=== PATIENT | female | born 1980 | race Caucasian/White ===

== ENCOUNTER 2017-01-16 13:39 | Emergency (ER) | payer OTHER ==
[2017-01-16 13:47] VITALS: BP 99/73; PULSE 87; TEMP 98.7; BMI 33.0
--- NOTE | 2017-01-16 13:52 | PDOC ---
History of Present Illness - General Chief Complaint: Pain Stated Complaint: NECK PAIN/ BACK PAIN Time Seen by Provider: 01/16/17 13:50 History Source: Patient, Spouse - History of Present Illness Occurred: reports: yesterday Severity: reports: severe Pain Location: reports: neck Past History - Past Medical History Allergies/Adverse Reactions: Allergies Allergy/AdvReac Type Severity Reaction Status Date / Time tramadol Allergy Verified 01/16/17 13:41 Home Medications: Ambulatory Orders Cyclobenzaprine HCl [Flexeril 10 mg] 10 mg PO TID PRN #9 tablet 01/16/17 Ibuprofen [Motrin -] 800 mg PO Q6H #30 tablet 01/16/17 Lidocaine 5% Patch [Lidoderm Patch -] 1 patch TP DAILY #7 patch 01/16/17 Other medical history: NECK AND BACK DISC - Immunization History Immunization Up to Date: Yes - Psycho/Social/Smoking Cessation Hx Anxiety: No Suicidal Ideation: No Smoking History: Never smoked Have you smoked in the past 12 months: No Information on smoking cessation initiated: No Hx Alcohol Use: No Drug/Substance Use Hx: No Substance Use Type: None Review of Systems - Review of Systems Constitutional: No: Chills, Fever Musculoskeletal: Yes: Back Pain, Neck Pain Neurological: No: Headache, Numbness, Tingling, Weakness, Dizziness *Physical Exam - Vital Signs Last Vital Signs Temp Pulse Resp BP Pulse Ox 98.7 F 87 18 99/73 100 01/16/17 13:41 01/16/17 13:41 01/16/17 13:41 01/16/17 13:41 01/16/17 13:41 - Physical Exam General Appearance: Yes: Appropriately Dressed, Mild Distress HEENT: positive: Normal Voice Neck: positive: Supple, Tender lateral (R side and over R shoulderblabe, LROM to neck 2/2 pain, no midline ttp, UE strength intact b/l, NVI). 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 Unable to describe, but constant and worse with movement of her neck. No upper extremity weakness, sensory changes, SHAH, dizziness, n/v/f/c. Took Motrin with minimal relief. See exam Acute on chronic neck pain Known h/o DJD to spine No recent trauma No s/o radiculopathy or other red flags on exam at this time -pain meds in ED and reassess -anticipate dc w/ pain control and neuro f/u 01/16/17 14:13 01/16/17 14:14 01/16/17 14:17 S/p meds, pt requesting to be discharge. Rxs sent to pharmacy. Will f/u with neuro *DC/Admit/Observation/Transfer Diagnosis at time of Disposition: Neck pain - Discharge Dispostion Disposition: HOME Condition at time of disposition: Improved - Prescriptions Prescriptions: Cyclobenzaprine HCl [Flexeril 10 mg] 10 mg PO TID PRN #9 tablet PRN Reason: Pain Lidocaine 5% Patch [Lidoderm Patch -] 1 patch TP DAILY #7 patch Ibuprofen [Motrin -] 800 mg PO Q6H #30 tablet - Patient Instructions Printed Discharge Instructions: DI for Neck Pain Additional Instructions: Take medications as directed and follow up with Dr Mcdonnell
[2017-01-16] MEDS ORDERED: KETOROLAC TROMETHAMINE 60 MG/2 ML VIAL IM ONE (13:58)
[2017-01-16] MEDS ORDERED: diazePAM 5 MG TABLET PO ONE (13:58)
[2017-01-16] MEDS ORDERED: diazePAM 5 MG TABLET ONE (14:01)
[2017-01-16] MEDS ORDERED: KETOROLAC TROMETHAMINE 60 MG/2 ML VIAL ONE (14:01)
== END 2017-01-16 14:15 | disposition home or self-care (01) ==
LOC: JERFT 13:39
PROC: 3E0233Z Introduction of Anti-inflammatory into Muscle, Percutaneous Approach (ICD-10-PCS; principal; 2017-01-16)
DX: M54.5 Low back pain (principal); M51.36 Other intervertebral disc degeneration, lumbar region
CPT/HCPCS: 96372; 99281-25

== ENCOUNTER 2017-06-01 13:51 | Emergency (ER) | payer OTHER ==
[2017-06-01 14:00] VITALS: BP 105/74; PULSE 68; TEMP 98.1; BMI 26.6
[2017-06-01 14:41] LABS: URINE APPEARANCE SLCLOUDY; URINE BILIRUBIN NEGATIVE (NEGATIVE); URINE BLOOD 2+ (NEGATIVE); URINE COLOR LTYELLOW; URINE GLUCOSE (UA) NEGATIVE (NEGATIVE); URINE KETONE NEGATIVE (NEGATIVE); URINE NITRITE NEGATIVE (NEGATIVE); URINE PROTEIN NEGATIVE (NEGATIVE); URINE UROBILINOGEN NEGATIVE mg/dL (0.2-1.0)
[2017-06-01 14:52] LABS: URINE RBC 26 /hpf (0-3); URINE WBC 6 /hpf (3-5)
[2017-06-01] MEDS ORDERED: KETOROLAC TROMETHAMINE 60 MG/2 ML VIAL IVPB ONE (15:00)
[2017-06-01] MEDS ORDERED: SODIUM CHLORIDE 0.9% 1000 ML INFUS.BAG IV ONE (15:00)
--- NOTE | 2017-06-01 15:01 | PDOC ---
History of Present Illness - General Chief Complaint: Back Pain Stated Complaint: LT SIDE PAIN Time Seen by Provider: 06/01/17 14:01 History Source: Patient Exam Limitations: No Limitations - History of Present Illness Initial Comments: 06/01/17 15:01 Patient is a 37-year-old female, no significant medical history currently on no medication presents with pain to left lateral side, right under ribs. Not reproducible. Constant and getting worse. Denies any hematuria. No pain on urination. Denies any trauma to area. Patient reports pain on inspiration as well as pain at rest. Past Medical History: Denies. Allergies: No known allergies Medications: None Family History: Non-contributory Social History: Denies smoking, alcohol use, or IVDU Review of Systems GENERAL/CONSTITUTIONAL: No fever or chills. No weakness. No weight change. HEAD, EYES, EARS, NOSE AND THROAT: No change in vision. No ear pain or discharge. No sore throat. CARDIOVASCULAR: No chest pain or shortness of breath. RESPIRATORY: No cough, wheezing, or hemoptysis. GASTROINTESTINAL: No nausea, vomiting, diarrhea or constipation. No rectal bleeding. GENITOURINARY: No dysuria, frequency, or change in urination. MUSCULOSKELETAL: No joint or muscle swelling or pain. No neck pain. Left flank pain SKIN AND BREASTS: No rash or easy bruising. NEUROLOGIC: No headache, vertigo, loss of consciousness, or loss of sensation. PSYCHIATRIC: No depression or anxiety. ENDOCRINE: No increased thirst. No abnormal weight change. HEMATOLOGIC/LYMPHATIC: No anemia, easy bleeding, or history of blood clots. ALLERGIC/IMMUNOLOGIC: No hives or skin allergy. No latex allergy. Physical Exam: GENERAL: The patient is awake, alert, and fully oriented, in no acute distress. HEAD: Normal with no signs of trauma. EYES: Pupils equal, round and reactive to light, extraocular movements intact, sclera anicteric, conjunctiva clear. ENT: Ears normal, nares patent, oropharynx clear without exudates. Moist mucous membranes. No uvula deviation NECK: Normal range of motion, supple without lymphadenopathy, JVD, or masses. LUNGS: Breath sounds equal, clear to auscultation bilaterally. No wheezes, and no crackles. HEART: Regular rate and rhythm, normal S1 and S2 without murmur, rub or gallop. ABDOMEN: Soft, nontender, normoactive bowel sounds. No guarding, no rebound. No masses. No bruising or abrasions RECTAL : Guaiac negative, normal rectal tone. MUSCULOSKELETAL: [Normal range of motion, no edema. No clubbing or cyanosis. No cords, erythema, or tenderness. Pain to left side with fist palpation. Left flank pain. NEUROLOGICAL: Cranial nerves II through XII grossly intact. Normal speech, normal gait. SKIN: Warm, Dry, normal turgor, no rashes or lesions noted. Past History - Past Medical History Allergies/Adverse Reactions: Allergies Allergy/AdvReac Type Severity Reaction Status Date / Time tramadol Allergy Verified 06/01/17 14:00 Home Medications: Ambulatory Orders Cyclobenzaprine HCl [Flexeril 10 mg] 10 mg PO BID PRN #20 tablet 06/01/17 Ibuprofen [Motrin -] 800 mg PO Q6H #30 tablet 06/01/17 Other medical history: Patient Denies - Immunization History Immunization Up to Date: Yes - Suicide/Smoking/Psychosocial Hx Smoking History: Never smoked Have you smoked in the past 12 months: No Information on smoking cessation initiated: No Hx Alcohol Use: No Drug/Substance Use Hx: No Substance Use Type: None *Physical Exam - Vital Signs Last Vital Signs Temp Pulse Resp BP Pulse Ox 98.1 F 68 16 105/74 98 06/01/17 13:57 06/01/17 13:57 06/01/17 13:57 06/01/17 13:57 06/01/17 13:57 ED Treatment Course - LABORATORY CBC & Chemistry Diagram: 06/01/17 15:01 06/01/17 15:01 - ADDITIONAL ORDERS Additional order review: Laboratory Results 06/01/17 06/01/17 14:32 14:32 Urine Color Ltyellow Urine Appearance Slcloudy Urine pH 7.0 Urine Protein Negative Urine Glucose (UA) Negative Urine Ketones Negative Urine Blood 2+ H Urine Nitrite Negative Urine Bilirubin Negative Urine Urobilinogen Negative Urine RBC 26 Urine WBC 6 Ur Epithelial Cells Rare Urine HCG, Qual Negative - RADIOLOGY Radiology Studies Ordered: Category Date Time Status CHEST PA & LAT [RAD] Stat Radiology 06/01/17 14:23 Ordered Medical Decision Making - Medical Decision Making 06/01/17 15:03 A/P: Patient here for left lateral flank pain. Denies any trauma. Pain at rest, nonreproducible. Plan: Rule out back pain versus kidney stone. Plan: Urinalysis, urine culture, urine Chest PA lateral Laboratory Results - last 24 hr 06/01/17 06/01/17 14:32 14:32 Urine Color Ltyellow Urine Appearance Slcloudy Urine pH 7.0 Urine Protein Negative Urine Glucose (UA) Negative Urine Ketones Negative Urine Blood 2+ H Urine Nitrite Negative Urine Bilirubin Negative Urine Urobilinogen Negative Urine RBC 26 Urine WBC 6 Ur Epithelial Cells Rare Urine HCG, Qual Negative +2 blood in urine with RBCs of 26 will send for spiral CT rule out kidney stones CMP, CBC Saline lock Normal saline bolus, 'TOradol 30 mg IVPB. Laboratory Results - last 24 hr 06/01/17 06/01/17 06/01/17 14:32 14:32 15:01 WBC 4.1 RBC 4.25 Hgb 13.0 Hct 38.9 MCV 91.5 MCH 30.5 MCHC 33.4 RDW 13.6 Plt Count 274 MPV 8.9 Neutrophils % 46.2 Lymphocytes % 40.1 H Monocytes % 6.3 Eosinophils % 6.4 H Basophils % 1.0 Sodium Potassium Chloride Carbon Dioxide Anion Gap BUN Creatinine Creat Clearance w eGFR Random Glucose Calcium Total Bilirubin AST ALT Alkaline Phosphatase Total Protein Albumin Urine Color Ltyellow Urine Appearance Slcloudy Urine pH 7.0 Urine Protein Negative Urine Glucose (UA) Negative Urine Ketones Negative Urine Blood 2+ H Urine Nitrite Negative Urine Bilirubin Negative Urine Urobilinogen Negative Urine RBC 26 Urine WBC 6 Ur Epithelial Cells Rare Urine HCG, Qual Negative 06/01/17 15:01 WBC RBC Hgb Hct MCV MCH MCHC RDW Plt Count MPV Neutrophils % Lymphocytes % Monocytes % Eosinophils % Basophils % Sodium 141 Potassium 4.6 Chloride 106 Carbon Dioxide 28 Anion Gap 7 L BUN 10 Creatinine 0.6 Creat Clearance w eGFR > 60 Random Glucose 84 Calcium 9.1 Total Bilirubin 0.4 AST 15 ALT 26 Alkaline Phosphatase 66 Total Protein 7.3 Albumin 3.6 Urine Color Urine Appearance Urine pH Urine Protein Urine Glucose (UA) Urine Ketones Urine Blood Urine Nitrite Urine Bilirubin Urine Urobilinogen Urine RBC Urine WBC Ur Epithelial Cells Urine HCG, Qual 06/01/17 16:30 CBC reveals no anemia, leukocytosis, bandemia, lymphocytosis, or neutrophilia. Platelets are within normal values at this time. CMP reveals no electrolyte imbalance, there is no transaminitis, renal function is normal, there is no hyperbilirubinemia. Urinalysis reveals no urinary tract infection. Chest x-rays negative for acute cardiopulmonary disease. CT scan demonstrated several punctate calcifications within the left upper collecting system consistent of nonobstructive calculi . No acute pathology within the abdomen or pelvis. We'll DC patient home, Motrin and Flexeril, follow -up with PMD for back pain. I discussed the physical exam findings, ancillary test results and final diagnoses with the patient. I answered all of the patient's questions. The patient was satisfied with the care received and felt comfortable with the discharge plan and treatment plan. The patient will call to arrange follow-up and will return to the Emergency Department with any new, persistant or worsening symptoms. 06/01/17 16:34 *DC/Admit/Observation/Transfer Diagnosis at time of Disposition: Back pain Qualifiers: Back pain location: low back pain Chronicity: acute Back pain laterality: left Sciatica presence: without sciatica Qualified Code(s): M54.5 - Low back pain; M54.5 - Low back pain - Discharge Dispostion Disposition: HOME Condition at time of disposition: Good Admit: No - Prescriptions Prescriptions: Cyclobenzaprine HCl [Flexeril 10 mg] 10 mg PO BID PRN #20 tablet PRN Reason: Pain Ibuprofen [Motrin -] 800 mg PO Q6H #30 tablet - Referrals Referrals: Erik Radford MD [Primary Care Provider] - - Patient Instructions Printed Discharge Instructions: DI for Low Back Pain Additional Instructions: 1. Please return to the emergency department with any numbness, tingling, weakness, numbness or tingling to groin or legs, or loss of bowel or bladder function. 2. Use pain medication as ordered. 3. Please is to followup in the office of for evaluation within a week if no improvement. 4. Ice or heat 5. Refrain from lifting anything above 10 pounds, until pain resolved. - Post Discharge Activity
[2017-06-01 15:30] LABS: EOSINOPHIL 6.4 % (0-4.5); MCH 30.5 pg (25.7-33.7); MCHC 33.4 g/dl (32.0-36.0); MEAN CELL VOLUME 91.5 fl (80-96); MEAN PLT VOLUME 8.9 fl (7.5-11.1); NEUTROPHILS 46.2 % (42.8-82.8); PLATELET COUNT 274 K/MM3 (134-434); RDW 13.6 % (11.6-15.6); WHITE BLOOD COUNT 4.1 K/mm3 (4.0-10.0)
[2017-06-01] MEDS ORDERED: KETOROLAC TROMETHAMINE 30 MG/1 ML VIAL ONE (15:32)
[2017-06-01 15:50] LABS: ALBUMIN 3.6 g/dl (3.4-5.0); ANION GAP 7 (8-16); CALCIUM 9.1 mg/dL (8.5-10.1); CO2 28 mmol/L (21-32); CREATININE 0.6 mg/dL (0.55-1.02); GLUCOSE,RANDOM 84 mg/dL (74-106); SGOT/AST 15 U/L (15-37); SGPT/ALT 26 U/L (12-78)
[2017-06-01 15:52] LABS: ALK PHOS 66 U/L (45-117); BILIRUBIN,TOTAL 0.4 mg/dL (0.2-1.0); TOT PROT 7.3 g/dl (6.4-8.2)
[2017-06-01 20:36] LABS: URINE LEUK ESTERASE Negative (NEGATIVE)
== END 2017-06-01 17:01 | disposition home or self-care (01) ==
LOC: JERFT 13:51
PROC: 3E0337Z Introduction of Electrolytic and Water Balance Substance into Peripheral Vein, Percutaneous Approach (ICD-10-PCS; principal; 2017-06-01)
PROC: 3E0333Z Introduction of Anti-inflammatory into Peripheral Vein, Percutaneous Approach (ICD-10-PCS; 2017-06-01)
DX: M54.5 Low back pain (principal)
CPT/HCPCS: 36415; 71020-TC; 74176; 80053; 81003; 81015; 84703; 85025; 87086; 99282-25

== ENCOUNTER 2018-02-04 14:33 | Emergency (ER) | payer OTHER ==
[2018-02-04 14:40] VITALS: BMI 26.9
[2018-02-04] MEDS ORDERED: KETOROLAC TROMETHAMINE 60 MG/2 ML VIAL IM ONE (14:52)
--- NOTE | 2018-02-04 14:52 | PDOC ---
History of Present Illness - General Chief Complaint: Back Pain Stated Complaint: LOWER BACK PAIN Time Seen by Provider: 02/04/18 14:42 History Source: Patient, Spouse - History of Present Illness Occurred: reports: this morning Pain Location: reports: back Past History - Past Medical History Allergies/Adverse Reactions: Allergies Allergy/AdvReac Type Severity Reaction Status Date / Time tramadol Allergy Verified 02/04/18 14:40 Home Medications: Ambulatory Orders Oxycodone HCl/Acetaminophen [Percocet 5-325 mg Tablet] 1 tab PO TID PRN #12 tablet MDD 3 tabs 02/04/18 COPD: No - Immunization History Immunization Up to Date: Yes - Suicide/Smoking/Psychosocial Hx Smoking History: Never smoked Have you smoked in the past 12 months: No Hx Alcohol Use: No Drug/Substance Use Hx: No Substance Use Type: None Review of Systems - Review of Systems Constitutional: No: Fever ABD/GI: No: Nausea, Vomiting, Abdominal cramping : No: Dysuria, Flank Pain, Hematuria Musculoskeletal: Yes: Back Pain Neurological: No: Numbness, Tingling, Weakness *Physical Exam - Vital Signs Last Vital Signs Temp Pulse Resp BP Pulse Ox 97.5 F L 68 18 102/68 99 02/04/18 14:36 02/04/18 14:36 02/04/18 14:36 02/04/18 14:36 02/04/18 14:36 - Physical Exam Comments: 02/04/18 14:57 appears very uncomfortable General Appearance: Yes: Appropriately Dressed HEENT: positive: Normal Voice Neck: positive: Supple Respiratory/Chest: negative: Respiratory Distress Gastrointestinal/Abdominal: positive: Soft. negative: Tender Musculoskeletal: positive: Vertebral Tenderness (to lower back). negative: CVA Tenderness Extremity: positive: Normal Inspection Integumentary: positive: Dry, Warm Neurologic: positive: Fully Oriented, Alert, Normal Mood/Affect, Motor Strength 5/5 Medical Decision Making - Medical Decision Making 02/04/18 14:49 38 yo F, h/o chronic neck and lower back pain, multilevel lumbar DJD on MRI in 2016, usually takes OTC meds for pain but currently takes rx meds, though does not remember name, here with worsening of pain that started acutely while bending this am. Pain sharp, localized to lower back, constant and worse w/ movement/weight bearing, similar to pain in past. No LE weakness, sensory changes, saddle anesthesia or B/B incontinence. Currently f/u with neurology See exam Acute on chronic LBP Multilevel DJD to LS spine on MRI 2015 No e/o cauda equina on exam On rx pain meds at home w/ no relief F/u with neuro -pain control necessary in ED/reassess 02/04/18 15:47 On reassessment, pt continues c/o severe LBP and unable to get up from stretcher. Pt reports allergy to tramadol (rxn-itching) and has never taken any other narcotics. Will transfer over to [facility] for further attempts at pain control. Unlikely imaging as no e/o cauda equina. Pt signed out to Dr Altman 02/04/18 17:08 *DC/Admit/Observation/Transfer Diagnosis at time of Disposition: Chronic back pain Qualifiers: Back pain location: low back pain Back pain laterality: unspecified Sciatica presence: without sciatica Qualified Code(s): M54.5 - Low back pain - Discharge Dispostion Condition at time of disposition: Stable - Prescriptions Prescriptions: Oxycodone HCl/Acetaminophen [Percocet 5-325 mg Tablet] 1 tab PO TID PRN #12 tablet MDD 3 tabs PRN Reason: Pain - Referrals Referrals: Erik Radford MD [Primary Care Provider] - - Patient Instructions Additional Instructions: You were seen in the ER for an acute flare-up of your chronic back pain. We gave you an injection of Toradol, some Flexeril, a Percocet, and some Valium, which helped with your pain. We are giving you referral information for one of our neurosurgeons; please follow up with them or with your own neurosurgeon. Please also follow up with your regular PCP doctor in 1-3 days, and discuss changing your pain management regimen so that you can get on top of your chronic back pain before getting to the point where you need to come to the ER. Call their clinic as soon as possible, tell them you were seen in the ER for back pain, and tell them you need an appointment. If you have any new or worsening symptoms please come back to the ER at any time (24 hours a day), especially for fever, new numbness, new tingling new weakness, new urinary or bowel incontinence or retention, or other new symptoms. If you are having severe or life threatening symptoms, or symptoms that make it unsafe to drive or have someone drive you, please call 911. - Post Discharge Activity
[2018-02-04] MEDS ORDERED: CYCLOBENZAPRINE HCL 10 MG TABLET (FP) PO ONE (14:55)
[2018-02-04] MEDS ORDERED: KETOROLAC TROMETHAMINE 60 MG/2 ML VIAL ONE (14:58)
[2018-02-04] MEDS ORDERED: CYCLOBENZAPRINE HCL 10 MG TABLET (FP) ONE (14:58)
[2018-02-04] MEDS ORDERED: diazePAM 2 MG TABLET PO ONE (16:26)
[2018-02-04] MEDS ORDERED: diazePAM 2 MG TABLET ONE (16:45)
--- NOTE | 2018-02-04 17:04 | PDOC ---
*Physical Exam - Vital Signs Last Vital Signs Temp Pulse Resp BP Pulse Ox 97.5 F L 68 18 102/68 99 02/04/18 14:36 02/04/18 14:36 02/04/18 14:36 02/04/18 14:36 02/04/18 14:36 <Konstantin Gould - Last Filed: 02/04/18 17:11> - Vital Signs Last Vital Signs Temp Pulse Resp BP Pulse Ox 97.5 F L 68 18 102/68 99 02/04/18 14:36 02/04/18 14:36 02/04/18 14:36 02/04/18 14:36 02/04/18 14:36 02/04/18 16:50 Care endorsed to me by MISAEL Pappas from [place]. This is a 38 YOF with h/o chronic back and neck pain 2/2 multilevel lumbar DJD (had MRI in 2016, followed by PCP and neurology for this and has had prescriptions for muscle relaxers and pain relievers in the past) who p/w acute worsening of her same chronic lower back pain after bending over yesterday. She had the onset of pain immediately after bending over, and it feels exactly the same as her normal chronic back pain. She has not gotten relief with OTC pain medications. She denies any e/o cauda equina syndrome (see Qian Pappas's note). <Gloria Grullon - Last Filed: 02/04/18 17:12> ED Treatment Course - Medications Given in the ED: ED Medications Discontinued Medications Generic Name Dose Route Start Last Admin Trade Name Dona PRN Reason Stop Dose Admin Cyclobenzaprine HCl 10 mg 02/04/18 14:55 02/04/18 15:03 Flexeril - PO 02/04/18 14:56 10 mg ONCE ONE Administration Diazepam 2 mg 02/04/18 16:26 02/04/18 16:51 Valium - PO 02/04/18 16:27 2 mg ONCE ONE Administration Ketorolac Tromethamine 60 mg 02/04/18 14:52 02/04/18 15:01 Toradol Injection - IM 02/04/18 14:53 60 mg ONCE ONE Administration Oxycodone/Acetaminophen 1 combo 02/04/18 16:26 02/04/18 16:51 Percocet 5/325 - PO 02/04/18 16:27 1 combo ONCE ONE Administration <Konstantin Gould - Last Filed: 02/04/18 17:11> - Medications Given in the ED: ED Medications Discontinued Medications Generic Name Dose Route Start Last Admin Trade Name Freq PRN Reason Stop Dose Admin Cyclobenzaprine HCl 10 mg 02/04/18 14:55 02/04/18 15:03 Flexeril - PO 02/04/18 14:56 10 mg ONCE ONE Administration Ketorolac Tromethamine 60 mg 02/04/18 14:52 02/04/18 15:01 Toradol Injection - IM 02/04/18 14:53 60 mg ONCE ONE Administration <Gloria Grullon - Last Filed: 02/04/18 17:12> Medical Decision Making - Medical Decision Making The Pt has gotten significant relief of symptoms with ED medications (first Toradol and Flexeril, later Percocet and Valium). They are appropriate for discharge with close outpatient follow up. E-Rx is sent for Percocet to last the rest of the weekend so the patient can see her outpatient provider. The Pt is comfortable with this plan and will follow up with their PCP in 1-3 days. They are counseled on importance of proactive pain management and neurosurgery follow up. Specific return precautions are discussed and they will come back to the ER if necessary. <Gloria Grullon - Last Filed: 02/04/18 17:12> *DC/Admit/Observation/Transfer <Konstantin Gould - Last Filed: 02/04/18 17:11> - Discharge Dispostion Decision to Admit order: No <Gloria Grullon - Last Filed: 02/04/18 17:12> Diagnosis at time of Disposition: Chronic back pain Qualifiers: Back pain location: low back pain Back pain laterality: unspecified Sciatica presence: without sciatica Qualified Code(s): M54.5 - Low back pain - Discharge Dispostion Disposition: HOME Condition at time of disposition: Stable - Prescriptions Prescriptions: Oxycodone HCl/Acetaminophen [Percocet 5-325 mg Tablet] 1 tab PO TID PRN #12 tablet MDD 3 tabs PRN Reason: Pain - Referrals Referrals: Erik Radford MD [Primary Care Provider] - Dayton Denise MD [Staff Physician] - - Patient Instructions Additional Instructions: You were seen in the ER for an acute flare-up of your chronic back pain. We gave you an injection of Toradol, some Flexeril, a Percocet, and some Valium, which helped with your pain. We are giving you referral information for one of our neurosurgeons; please follow up with them or with your own neurosurgeon. Please also follow up with your regular PCP doctor in 1-3 days, and discuss changing your pain management regimen so that you can get on top of your chronic back pain before getting to the point where you need to come to the ER. Call their clinic as soon as possible, tell them you were seen in the ER for back pain, and tell them you need an appointment. If you have any new or worsening symptoms please come back to the ER at any time (24 hours a day), especially for fever, new numbness, new tingling new weakness, new urinary or bowel incontinence or retention, or other new symptoms. If you are having severe or life threatening symptoms, or symptoms that make it unsafe to drive or have someone drive you, please call 911. - Post Discharge Activity
--- NOTE | 2018-02-04 17:10 | PDOC ---
Attending Attestation - Resident Resident Name: Gloria Grullon - ED Attending Attestation I have performed the following: I have examined & evaluated the patient, The case was reviewed & discussed with the resident, I agree w/resident's findings & plan, Exceptions are as noted - HPI HPI: 02/04/18 17:04 38 F with h/o chronic back pain presenting with acute worsening of her pain. Pt states she was bending over when she suddenly felt sharp pain in her lower back. Radiates down both legs. Pt denies falling or any trauma to the area. Denies weakness/numbness in her legs but states that she has very significant pain with standing and ambulation. Pt denies incontinence, denies saddle anesthesia. Denies F/C. - Physicial Exam PE: 02/04/18 17:09 "GENERAL: Awake, alert, and fully oriented, in no acute distress. HEAD: No signs of trauma EYES: PERRLA, EOMI, sclera anicteric, conjunctiva clear ENT: Auricles normal inspection, hearing grossly normal, nares patent, oropharynx clear without exudates. Moist mucosa NECK: Nontender, no stepoffs, Normal ROM, supple, no lymphadenopathy, JVD, or masses LUNGS: Breath sounds equal, clear to auscultation bilaterally. No wheezes, and no crackles HEART: Regular rate and rhythm, normal S1 and S2, no murmurs, rubs or gallops ABDOMEN: Soft, nontender, normoactive bowel sounds. No guarding, no rebound. No masses EXTREMITIES: Normal range of motion, no edema. No clubbing or cyanosis. No cords, erythema, or tenderness BACK: + mild paraspinal lumbar tenderness, no stepoffs NEUROLOGICAL: Cranial nerves II through XII intact. 5/5 strength and sensation in all extremities, Normal speech, normal gait, normal cerebellar function SKIN: Warm, Dry, normal turgor, no rashes or lesions noted. " - Medical Decision Making 02/04/18 17:10 38 F with lower back pain, acute on chronic. Pt with no neuro deficits. Is ambulatory in ED. Pt received IM toradol, flexeril, percocet, and valium prior to my evaluation. Now with significant improvement in pain. Pt with no red flags for cauda equina/cord compression/epidural abscess. - F/u neurology Pt is well appearing, with normal vitals. Clinically stable for DC at this time. I discussed the physical exam findings, ancillary test results and final diagnoses with the patient. I answered all of the patient's questions. The patient was satisfied with the care received and felt comfortable with the discharge plan and treatment plan. The patient agrees to follow up with the primary care physician within 24-72 hours.
[2018-02-04 17:27] VITALS: BP 125/59; PULSE 65; TEMP 97.9
== END 2018-02-04 17:26 | disposition home or self-care (01) ==
LOC: JERFT 14:33 → JER 14:33
PROC: 3E0233Z Introduction of Anti-inflammatory into Muscle, Percutaneous Approach (ICD-10-PCS; principal; 2018-02-04)
DX: M54.5 Low back pain (principal); M47.896 Other spondylosis, lumbar region
CPT/HCPCS: 96372; 99283-25

== ENCOUNTER 2018-04-28 13:24 | Emergency (ER) | payer OTHER ==
[2018-04-28 13:40] VITALS: BP 112/68; PULSE 65; TEMP 98.2; BMI 28.7
--- NOTE | 2018-04-28 14:02 | PDOC ---
History of Present Illness - General Chief Complaint: Pain, Acute Stated Complaint: RIGHT KNEE PAIN Time Seen by Provider: 04/28/18 13:46 History Source: Patient Exam Limitations: No Limitations - History of Present Illness Initial Comments: 04/28/18 14:01 38 yr female with 2 weeks right knee pain denies injury, states pain worse with walking up and down steps. Past History - Past Medical History Allergies/Adverse Reactions: Allergies Allergy/AdvReac Type Severity Reaction Status Date / Time tramadol Allergy Verified 04/28/18 13:38 Home Medications: Ambulatory Orders Ibuprofen 600 mg PO ASDIR 04/28/18 CVA: No COPD: No - Immunization History Immunization Up to Date: Yes - Suicide/Smoking/Psychosocial Hx Smoking History: Never smoked Have you smoked in the past 12 months: No Information on smoking cessation initiated: No Hx Alcohol Use: No Drug/Substance Use Hx: No Substance Use Type: None *Physical Exam - Vital Signs Last Vital Signs Temp Pulse Resp BP Pulse Ox 98.2 F 65 18 112/68 99 04/28/18 13:38 04/28/18 13:38 04/28/18 13:38 04/28/18 13:38 04/28/18 13:38 - Physical Exam General Appearance: Yes: Nourished, Appropriately Dressed HEENT: positive: EOMI, CONSTANCE Neck: positive: Supple. negative: Tender Respiratory/Chest: positive: Lungs Clear, Normal Breath Sounds. negative: Chest Tender Cardiovascular: positive: Regular Rhythm, Regular Rate Extremity: positive: Normal Capillary Refill, Tender, Swelling (right knee medial swelling ttp , no calf tenderness, FROM nv intact , pain with extension ) Integumentary: positive: Normal Color, Dry, Warm Neurologic: positive: Fully Oriented, Alert, Normal Mood/Affect, Normal Response , Motor Strength 5/5 Medical Decision Making - Medical Decision Making 04/28/18 14:08 cc: right knee pain for 2 weeks worse with going up and down steps denies any direct trauma, pt feels a"clicking" when she goes up and down steps taking motrin with some relief will get xray refer to ortho if negative *DC/Admit/Observation/Transfer Diagnosis at time of Disposition: Knee pain, right Qualifiers: Chronicity: acute Qualified Code(s): M25.561 - Pain in right knee - Discharge Dispostion Disposition: HOME Condition at time of disposition: Fair - Referrals Referrals: Erik Radford MD [Primary Care Provider] - Maurice Mckeon MD [Staff Physician] - - Patient Instructions Additional Instructions: follow with or for follow up call today to make appointment use the jules wrap while awake remove to sleep and bathe take ibuprofen 800mg every 8hrs for pain please elevate and apply warm compresses to the area of pain for 20 minutes every 3hrs - Post Discharge Activity
== END 2018-04-28 15:52 | disposition home or self-care (01) ==
LOC: JERFT 13:24
DX: M25.561 Pain in right knee (principal); Z88.8 Allergy status to other drugs, medicaments and biological substances
CPT/HCPCS: 73562-TC-RT-FY; 84703; 99281-25

== ENCOUNTER 2019-03-20 21:41 | Emergency (ER) | payer OTHER ==
--- NOTE | 2019-03-20 21:56 | PDOC ---
Rapid Medical Evaluation Chief Complaint: Back Pain Time Seen by Provider: 03/20/19 21:55 Medical Evaluation: Allergies Allergy/AdvReac Type Severity Reaction Status Date / Time tramadol Allergy Verified 04/28/18 13:38 03/20/19 21:55 I have performed a brief in-person evaluation of this patient. The patient presents with a chief complaint of: lower back pain x1 day s/p heavy lifting Pertinent physical exam findings: No focal findings I have ordered the following: urine The patient will proceed to the ED for further evaluation. Discharge Disposition - Diagnosis Back pain - Referrals Referrals: Erik Radford MD [Primary Care Provider] - - Patient Instructions - Post Discharge Activity
[2019-03-20 22:01] VITALS: TEMP 98.7; BMI 26.9
[2019-03-20 22:44] LABS: HYALINE CASTS 5 /lpf (0-8); URINE APPEARANCE CLEAR; URINE BACTERIA 291.1 /hpf (NEGATIVE); URINE BILIRUBIN NEGATIVE (NEGATIVE); URINE COLOR YELLOW; URINE GLUCOSE (UA) NEGATIVE (NEGATIVE); URINE KETONE TRACE (NEGATIVE); URINE LEUK ESTERASE 1+ (NEGATIVE); URINE NITRITE NEGATIVE (NEGATIVE); URINE PROTEIN NEGATIVE (NEGATIVE); URINE RBC 1 /hpf (0-4); URINE UROBILINOGEN 0.2 mg/dL (0.2-1.0); URINE WBC 4 /hpf (0-5)
--- NOTE | 2019-03-20 22:49 | PDOC ---
History of Present Illness - General Chief Complaint: Back Pain Stated Complaint: BACK PAIN Time Seen by Provider: 03/20/19 21:55 Past History - Past Medical History Allergies/Adverse Reactions: Allergies Allergy/AdvReac Type Severity Reaction Status Date / Time tramadol Allergy Verified 03/20/19 21:59 Home Medications: Ambulatory Orders Ibuprofen 600 mg PO ASDIR 04/28/18 CVA: No COPD: No - Immunization History Immunization Up to Date: Yes - Suicide/Smoking/Psychosocial Hx Smoking History: Never smoked Have you smoked in the past 12 months: No Information on smoking cessation initiated: No Hx Alcohol Use: No Drug/Substance Use Hx: No Substance Use Type: None *Physical Exam - Vital Signs Last Vital Signs Temp Pulse Resp BP Pulse Ox 98.7 F 74 18 97/64 100 03/20/19 21:56 03/20/19 21:56 03/20/19 21:56 03/20/19 21:56 03/20/19 21:56 ED Treatment Course - ADDITIONAL ORDERS Additional order review: Laboratory Results 03/20/19 03/20/19 22:25 22:25 Urine Color Yellow Urine Appearance Clear Urine pH 5.0 D Ur Specific [place] 1.025 Urine Protein Negative Urine Glucose (UA) Negative Urine Ketones Trace H Urine Blood Negative Urine Nitrite Negative Urine Bilirubin Negative Urine Urobilinogen 0.2 Ur Leukocyte Esterase 1+ H Urine WBC (Auto) 4 Urine RBC (Auto) 1 Urine Casts (Auto) 5 U Epithel Cells (Auto) 6.0 Urine Bacteria (Auto) 291.1 Urine HCG, Qual Negative *DC/Admit/Observation/Transfer Diagnosis at time of Disposition: Back pain - Referrals Referrals: Erik Radford MD [Primary Care Provider] - - Patient Instructions - Post Discharge Activity
--- NOTE | 2019-03-20 23:29 | PDOC ---
History of Present Illness - General Chief Complaint: Back Pain Stated Complaint: BACK PAIN Time Seen by Provider: 03/20/19 21:55 - History of Present Illness Initial Comments: 03/21/19 23:39 39yo F hx chronic lower back pain managed by Dr. Davis presents from home c/o b/l lower back pain x1 day exactly the same as previous exacerbations. Pain started last night after heavy lifting, started in R lower back and spread to left. Pt has chronic lower back pain managed by Dr Davis with motrin and flexeril. Pt took 2 motrins and 10mg flexeril today without improvement. Pt states that Dr. Davis told her to come to the ED whenever she can't control the pain with this regimen. She has had to do this approximately once a year. She gets a "shot" and a "pill" (Toradol and Valium per chart review) and feels better and can go home. Pt states this is all she wants now so she can go home. Denies trauma/fall, fever, saddle anesthesia, numbness/tingling, motor weakness , bowel or bladder incontinence or retention, dysuria, frequency, urgency, neck pain, headache, dizziness, vision changes, N/V, CP, SOB, abdominal pain, D/C, blood in stool, hematuria, hx UTIs or kidney stones. Past History - Past Medical History Allergies/Adverse Reactions: Allergies Allergy/AdvReac Type Severity Reaction Status Date / Time tramadol Allergy Verified 03/20/19 21:59 Home Medications: Ambulatory Orders Ibuprofen 600 mg PO ASDIR 04/28/18 Cyclobenzaprine HCl [Flexeril 10 mg] 10 mg PO BID PRN #60 tablet 03/20/19 CVA: No COPD: No - Immunization History Immunization Up to Date: Yes - Suicide/Smoking/Psychosocial Hx Smoking History: Never smoked Have you smoked in the past 12 months: No Information on smoking cessation initiated: No Hx Alcohol Use: No Drug/Substance Use Hx: No Substance Use Type: None Review of Systems - Review of Systems Comments:: 03/21/19 03:08 Constitutional: Negative for chills, fever, fatigue. HENT: Negative for sore throat, rhinorrhea, congestion. Eyes: Negative for visual disturbance. Respiratory: Negative for shortness of breath, cough, and wheezing. Cardiovascular: Negative for chest pain, palpitations, and leg swelling. Gastrointestinal: Negative for abdominal pain, blood in stool, constipation, diarrhea, nausea, and vomiting. Genitourinary: Negative for dysuria, flank pain, and hematuria. Musculoskeletal: Positive for back pain. Negative for myalgias and neck pain. Skin: Negative for rash. Neurological: Negative for light-headedness, dizziness, syncope, weakness, numbness and headaches. Psychiatric/Behavioral: Negative for behavioral problems and confusion. *Physical Exam - Vital Signs Last Vital Signs Temp Pulse Resp BP Pulse Ox 98.7 F 74 18 97/64 100 03/20/19 21:56 03/20/19 21:56 03/20/19 21:56 03/20/19 21:56 03/20/19 21:56 - Physical Exam Comments: 03/21/19 03:08 Gen: Alert, NAD, uncomfortable-appearing, lying on side HEENT: PERRL, EOMI, MMM, NCAT. No conjunctival pallor. Sclera are non-icteric. CV: Regular rate and rhythm. No murmurs, rubs, or gallops. PULM: No resp distress. CTAB, no wheezes, rales, or rhonchi. ABD: soft, NT/ND, no rebound tenderness or guarding, no CVA tenderness. BACK: No midline tenderness of L-spine. Mild TTP of b/l paraspinal L-spine. No TTP of c/t-spine. No step-offs or deformities or skin abnormalities. MSK: No bony deformities. 2+ pulses in all extremities. NEURO: AAOx3. PERRL. CN 2-12 intact. 5/5 strength in all extremities. Sensation to light touch intact in all extremities. No pronator drift. No dysmetria. No dysdiadochokinesia. No abnormal nystagmus. No skew deviation. Normal gait. EXTREMITIES: No cyanosis. No clubbing. No edema. No calf tenderness. PSYCH: Normal mood and thought pattern. SKIN: Warm and dry. Normal capillary refill. No rashes. No jaundice. ED Treatment Course - ADDITIONAL ORDERS Additional order review: Laboratory Results 03/20/19 03/20/19 22:25 22:25 Urine Color Yellow Urine Appearance Clear Urine pH 5.0 D Ur Specific [place] 1.025 Urine Protein Negative Urine Glucose (UA) Negative Urine Ketones Trace H Urine Blood Negative Urine Nitrite Negative Urine Bilirubin Negative Urine Urobilinogen 0.2 Ur Leukocyte Esterase 1+ H Urine WBC (Auto) 4 Urine RBC (Auto) 1 Urine Casts (Auto) 5 U Epithel Cells (Auto) 6.0 Urine Bacteria (Auto) 291.1 Urine HCG, Qual Negative Medical Decision Making - Medical Decision Making 03/21/19 23:36 39yo F hx chronic lower back pain managed by Dr. Davis presents with b/l paraspinal lumbar pain x1 day exactly the same as previous exacerbations. Pt normally takes motrin and flexeril for the pain, but when it doesn't resolve the pain, pt states her doctor told her to come to the ED where she gets a "shot " and a "pill" (Toradol and Valium per chart review). This happens approximately once per year. Hemodynamically stable, afebrile, neurologically intact, no midline TTP. Pain consistent with her prior episodes of chronic pain - treat with toradol and valium and d/c home w/PCP and Dr. Davis f/u. No trauma/fall, fever, saddle anesthesia, numbness/tingling, motor weakness, bowel or bladder incontinence or retention concerning for cauda equina, cord compression, epidural abscess, or fracture. UA is on the borderline for UTI but pt denies any dysuria, frequency, or urgency - no indication for UTI tx at this time. -Toradol and Valium for pain -D/c home with PCP and back doctor Dr. Ryan keita/devon and flexeril prescription Return precautions given. Pt understands all dc instructions and all questions were answered. *DC/Admit/Observation/Transfer Diagnosis at time of Disposition: Back pain - Discharge Dispostion Disposition: HOME Condition at time of disposition: Improved Decision to Admit order: No - Prescriptions Prescriptions: Cyclobenzaprine HCl [Flexeril 10 mg] 10 mg PO BID PRN #60 tablet PRN Reason: Back Pain - Referrals Referrals: Erik Radford MD [Primary Care Provider] - - Patient Instructions Printed Discharge Instructions: DI for Low Back Pain Additional Instructions: You have been seen in the Emergency Department for an exacerbation of your chronic back pain. You have been given Toradol and Valium, which helped your pain. We have also prescribed you Flexeril - take as instructed on the bottle as needed for your pain. You can also take Motrin as directed on the medication bottle, but do not exceed 3g of Ibuprofen/Motrin a day. Follow-up with your primary care doctor and your back doctor Dr. Davis within 1 week. Call 911 or return to the ED immediately if you experience fever, numbness or tingling, weakness, urinary or bowel incontinence or retention, or any other new or worsening symptoms. - Post Discharge Activity
[2019-03-20] MEDS ORDERED: KETOROLAC TROMETHAMINE 60 MG/2 ML VIAL IM ONE (23:33)
[2019-03-20] MEDS ORDERED: KETOROLAC TROMETHAMINE 60 MG/2 ML VIAL ONE (23:40)
[2019-03-20] MEDS ORDERED: diazePAM 2 MG TABLET PO ONE (23:44)
[2019-03-20] MEDS ORDERED: diazePAM 2 MG TABLET ONE (23:48)
[2019-03-21 00:01] VITALS: BP 101/65; PULSE 76
--- NOTE | 2019-03-21 00:01 | PDOC ---
Documentation entered by Dior Chiu SCRIBE, acting as scribe for Daya Talley MD. Daya Talley MD: This documentation has been prepared by the scribe, Dior Chiu SCRIBE, under my direction and personally reviewed by me in its entirety. I confirm that the documentation accurately reflects all work, treatment, procedures, and medical decision making performed by me. Attending Attestation - Resident Resident Name: Radha Hernández - ED Attending Attestation I have performed the following: I have examined & evaluated the patient, The case was reviewed & discussed with the resident, I agree w/resident's findings & plan, Exceptions are as noted - HPI HPI: 03/20/19 23:34 The patient is a 39-year-old female, with a past medical history of chronic back pain, who presents to the ED with 1 day of lower back pain s/p heavy lifting. Patient has tried flexeril and motrin with no relief of her symptoms. The patient fevers, chills, nausea, vomiting, diarrhea, or abdominal pain. Denies any chest pain or shortness of breath. Allergies: Tramadol - Physicial Exam PE: 03/20/19 23:36 GENERAL: Well-appearing, well-nourished. No apparent distress. HEENT: Normocephalic, atraumatic. PERRL, EOM intact. CARDIOVASCULAR: Normal S1, S2. Regular rate and rhythm. PULMONARY: Clear to auscultation bilaterally. ABDOMEN: Soft, non-distended, non-tender. MSK: (+)Paraspinal lumbar tenderness. EXTREMITIES: Normal ROM in all four extremities. No gross deformities. SKIN: Warm, dry. No rash NEUROLOGICAL: No focal neurological deficits. - Medical Decision Making 03/20/19 23:59 pt has no new bowel or bladder incontinence,no saddle anesthesia, no motor weakness imp chronic low back pain pt will be given ketamine and d/c home
== END 2019-03-20 23:55 | disposition home or self-care (01) ==
LOC: JER 21:41
PROC: 3E0233Z Introduction of Anti-inflammatory into Muscle, Percutaneous Approach (ICD-10-PCS; principal; 2019-03-20)
DX: M54.5 Low back pain (principal); G89.29 Other chronic pain
CPT/HCPCS: 81003; 84703; 87086; 96372; 99283-25

== ENCOUNTER 2019-06-06 06:41 | Emergency (ER) | payer OTHER ==
[2019-06-06 06:59] VITALS: BMI 24.2
[2019-06-06] MEDS ORDERED: ACETAMINOPHEN 325 MG TABLET (FP) PO ONE (08:05)
[2019-06-06] MEDS ORDERED: ACETAMINOPHEN 325 MG TABLET (FP) ONE (08:06)
[2019-06-06 08:12] LABS: BASO % 0.9 % (0-2.0); HEMOGLOBIN 12.3 GM/dL (10.7-15.3); LYMPH % 44.8 % (8-40); MCH 28.3 pg (25.7-33.7); MCHC 33.2 g/dl (32.0-36.0); MEAN CELL VOLUME 85.4 fl (80-96); MEAN PLT VOLUME 8.7 fl (7.5-11.1); MONO % 8.1 % (3.8-10.2); NEUT % 41.2 % (42.8-82.8); PLATELET COUNT 299 K/MM3 (134-434); RBC 4.33 M/mm3 (3.60-5.2); RDW 16.3 % (11.6-15.6); WHITE BLOOD COUNT 4.4 K/mm3 (4.0-10.0)
[2019-06-06 08:28] LABS: PH,URINE 6.5 (5.0-8.0); URINE APPEARANCE CLOUDY; URINE BILIRUBIN NEGATIVE (NEGATIVE); URINE COLOR YELLOW; URINE GLUCOSE (UA) NEGATIVE (NEGATIVE); URINE KETONE NEGATIVE (NEGATIVE); URINE LEUK ESTERASE NEGATIVE (NEGATIVE); URINE NITRITE NEGATIVE (NEGATIVE); URINE PROTEIN NEGATIVE (NEGATIVE); URINE UROBILINOGEN 0.2 mg/dL (0.2-1.0)
[2019-06-06 08:40] LABS: ALBUMIN 3.6 g/dl (3.4-5.0); BILIRUBIN,TOTAL 0.4 mg/dL (0.2-1); BLOOD UREA NITROGEN 14.2 mg/dL (7-18); CALCIUM 9.5 mg/dL (8.5-10.1); CREATININE 0.7 mg/dL (0.55-1.3); POTASSIUM 4.6 mmol/L (3.5-5.1); TOT PROT 7.2 g/dl (6.4-8.2)
[2019-06-06 09:33] VITALS: BP 94/59; PULSE 74; TEMP 98.8
--- NOTE | 2019-06-06 09:38 | PDOC ---
Documentation entered by Jamee Tam SCRIBE, acting as scribe for Will Teran MD. Will Teran MD: This documentation has been prepared by the Yonatan wolf Sammi, SCRIBE, under my direction and personally reviewed by me in its entirety. I confirm that the documentation accurately reflects all work, treatment, procedures, and medical decision making performed by me. History of Present Illness - General Chief Complaint: Syncope/Near Syncope Stated Complaint: SYNCOPE Time Seen by Provider: 06/06/19 07:40 - History of Present Illness Initial Comments: 06/06/19 07:59 The patient is a 39 year old female who presents to the emergency department for evaluation of feeling faint, dizzy, and short of breath while observing the of her grandchild this morning. She currently complains of dizziness, headache and chills. She reports LMP ~3 weeks and notes her periods have been heavy since placement of her IUD. PMH: hypotension Past History - Past Medical History Allergies/Adverse Reactions: Allergies Allergy/AdvReac Type Severity Reaction Status Date / Time tramadol Allergy Verified 06/06/19 06:52 Home Medications: Ambulatory Orders Cyclobenzaprine HCl [Flexeril 10 mg] 10 mg PO PRN PRN 06/06/19 CVA: No COPD: No - Immunization History Immunization Up to Date: Yes - Psycho Social/Smoking Cessation Hx Smoking History: Never smoked Have you smoked in the past 12 months: No Information on smoking cessation initiated: No Hx Alcohol Use: No Drug/Substance Use Hx: No Substance Use Type: None Review of Systems - Review of Systems Comments:: 06/06/19 08:10 CONSTITUTIONAL: +chills. No fever EYES: No visual changes CARDIOVASCULAR: No chest pain, no palpitations RESPIRATORY: +SOB. No cough GI: No abdominal pain, no nausea, no vomiting, no constipation, no diarrhea GENITOURINARY: No dysuria, no frequency, no hematuria MUSKULOSKELETAL: No backpain, no joint pain, no myalgias SKIN: No rash NEURO: +headache. +dizziness. *Physical Exam - Vital Signs Last Vital Signs Temp Pulse Resp BP Pulse Ox 97.9 F 70 24 H 109/72 100 06/06/19 07:16 06/06/19 07:16 06/06/19 07:16 06/06/19 07:16 06/06/19 07:16 - Physical Exam Comments: 06/06/19 08:11 CONSTITUTIONAL: Awake, alert, +pale appearing. ENMT: External appears normal; normal oropharynx NECK: Supple; non-tender; no cervical lymphadenopathy CARD: Normal S1, S2; no murmurs, rubs, or gallops RESP: Normal chest excursion with respiration; breath sounds clear and equal bilaterally; no wheezes, rhonchi, or rales ABD: Soft, non-distended; non-tender; no palpable organomegaly, no palpable hernias EXT: Normal ROM in all four extremities; non-tender to palpation; distal pulses intact SKIN: Warm, dry, no rash NEURO: No focal neurological deficiencies. Heart Score/ECG Review - ECG Impressions Comment:: 06/06/19 07:57 normal sinus rhythm normal ECG ED Treatment Course - LABORATORY CBC & Chemistry Diagram: 06/06/19 07:50 06/06/19 07:50 - ADDITIONAL ORDERS Additional order review: Laboratory Results 06/06/19 06/06/19 06/06/19 07:50 07:50 07:50 Sodium 139 Potassium 4.6 Chloride 107 Carbon Dioxide 25 Anion Gap 7 L BUN 14.2 Creatinine 0.7 Est GFR (CKD-EPI)AfAm 125.61 Est GFR (CKD-EPI)NonAf 108.38 Random Glucose 119 H Calcium 9.5 Total Bilirubin 0.4 AST 16 ALT 26 Alkaline Phosphatase 71 Total Protein 7.2 Albumin 3.6 Serum , Qual Negative Urine Color Yellow Urine Appearance Cloudy Urine pH 6.5 D Ur Specific [place] 1.020 Urine Protein Negative Urine Glucose (UA) Negative Urine Ketones Negative Urine Blood Negative Urine Nitrite Negative Urine Bilirubin Negative Urine Urobilinogen 0.2 Ur Leukocyte Esterase Negative 06/06/19 07:50 RBC 4.33 MCV 85.4 MCHC 33.2 RDW 16.3 H MPV 8.7 Neutrophils % 41.2 L Lymphocytes % 44.8 H Monocytes % 8.1 Eosinophils % 5.0 H Basophils % 0.9 - Medications Given in the ED: ED Medications Discontinued Medications Generic Name Dose Route Start Last Admin Trade Name Freq PRN Reason Stop Dose Admin Acetaminophen 650 mg 06/06/19 08:05 06/06/19 08:08 Tylenol - PO 06/06/19 08:06 650 mg ONCE ONE Administration Medical Decision Making - Medical Decision Making 06/06/19 Patient is a 39-year-old female who presents to the ER after a witnessed near syncopal episode that occurred during delivery of her grandchild. Patient complained of feeling lightheaded and dizzy after a prolonged period of standing during the delivery. Patient denies LOC or head trauma, denies chest pain/shortness of breath/nausea/vomiting/bleeding. Patient does complain of mild headache during her evaluation. In the ER, patient is awake and alert, without evidence of orthostasis, receiving IV fluid prior to my evaluation. EKG shows no evidence of acute ischemia or dysrhythmia. CBC is within normal limits without significant anemia. CMP reveals normal electrolytes and urinalysis reveals no evidence of pyuria or high specific gravity. I do not suspect cardiac dysrhythmia. Vasovagal syncope suspected. Patient observed for period of time and is currently asymptomatic. Ambulating without difficulty. Will discharge. Discharge - Discharge Information Problems reviewed: Yes Clinical Impression/Diagnosis: Near syncope Condition: Stable Disposition: HOME - Follow up/Referral Referrals: Karlo Santana MD [Primary Care Provider] - - Patient Discharge Instructions Patient Printed Discharge Instructions: DI for Syncope in Adults (Fainting) Print Language: BELIZEAN - Post Discharge Activity
--- NOTE | 2019-06-06 11:01 | EKG ---
Test Reason : Blood Pressure : / mmHG Vent. Rate : 069 BPM Atrial Rate : 069 BPM P-R Int : 138 ms QRS Dur : 080 ms QT Int : 414 ms P-R-T Axes : 057 063 056 degrees QTc Int : 443 ms NORMAL SINUS RHYTHM NORMAL ECG NO PREVIOUS ECGS AVAILABLE Confirmed by RIAN BARRAGAN, YOANA ([id number]) on 06/06/2019 11:01:13 AM Referred By: Confirmed By:YOANA MODI MD
== END 2019-06-06 09:54 | disposition home or self-care (01) ==
LOC: JER 06:41
DX: R55 Syncope and collapse (principal); I95.9 Hypotension, unspecified
CPT/HCPCS: 36415; 80053; 81003; 84703; 85025; 93005; 93010; 99285-25

== ENCOUNTER 2020-06-05 19:34 | Emergency (ER) | payer OTHER ==
[2020-06-05 19:47] VITALS: TEMP 98.6; BMI 33.2
--- OUTSIDE RECORDS SUMMARY | 2020-06-05 19:52 | XMS ---
:1980 Author Organization [facility] Care Team Providers Name Role Phone Oliver Grant Unavailable [phone] STEVEN CHERY Unavailable Unavailable Malina, Osama Unavailable Unavailable Malina, Osama Unavailable Unavailable Malina, Osama Unavailable Unavailable Malina, Osama Unavailable Unavailable Malina, Osama Unavailable Unavailable Malina, Osama Unavailable Unavailable Malina, Osama Unavailable Unavailable Malina, Osama Unavailable Unavailable Malina, Osama Unavailable Unavailable Malina, Osama Unavailable Unavailable Malina, Osama Unavailable Unavailable Malina, Osama Unavailable Unavailable Malina, Osama Unavailable Unavailable Malina, Osama Unavailable Unavailable Malina, Osama Unavailable Unavailable Re-disclosure Warning The records that you are about to access may contain information from federally- assisted alcohol or drug abuse programs. If such information is present, then the following federally mandated warning applies: This information has been disclosed to you from records protected by federal confidentiality rules (42 CFR part 2). The federal rules prohibit you from making any further disclosure of this information unless further disclosure is expressly permitted by the written consent of the person to whom it pertains or as otherwise permitted by 42 CFR part 2. A general authorization for the release of medical or other information is NOT sufficient for this purpose. The Federal rules restrict any use of the information to criminally investigate or prosecute any alcohol or drug abuse patient.The records that you are about to access may contain highly sensitive health information, the redisclosure of which is protected by Article 27-F of the [facility] Public Health law. If you continue you may haveaccess to information: Regarding HIV / AIDS; Provided by facilities licensed or operated by the [facility] Office of Mental Health; or Provided by the [facility] Office for People With Developmental Disabilities. If such information is present, then the following [facility] mandated warning applies: This information has been disclosed to you from confidential records which are protected by state law. State law prohibits you from making any further disclosure of this information without the specific written consent of the person to whom it pertains, or as otherwise permitted by law. Any unauthorized further disclosure in violation of state law may result in a fine or residential sentence or both. A general authorization for the release of medical or other information is NOT sufficient authorization for further disclosure. Allergies and Adverse Reactions Type Description Substance Reaction Status Data Source(s ) Drug allergy Tramadol HCl Tramadol HCl Unknown Active eCW1 ([facility]) Encounters Encounter Providers Location Date Indications Data Source(s ) [address] [address] 01/23/2020 eCW1 ([facility] 12:00:00 [facility] AM [facility]T [facility]) [facility] Sayaugustinedmitter: 09:06:00 Medical C enter Osama AM EDT SayeghReferrer: Osama Malina [address] [address] 01/10/2020 eCW1 ([facility] 12:00:00 [facility] AM EDT [facility] PC) [address] [address] 11/13/2019 eCW1 ([facility] 12:00:00 [facility] AM EDT Practice PC) [address] [address] 09/11/2019 eCW1 ([facility] 12:00:00 [facility] AM EST Practice PC) [address] [address] 09/11/2019 eCW1 ([facility] 12:00:00 [facility] AM EST [facility] PC) Outpatient 08/20/2019 [facility] 04:26:00 Medical Center PM EST Outpatient 08/20/2019 [facility] 12:00:00 Medical Center AM EST Outpatient 07/27/2019 [facility] 03:42:00 Medical Center PM EST Outpatient Attender: STEVEN Ramirez 07/27/2019 [facility] NAQVIERAS STEVEN 10:47:00 Medical Cent er MARTINAdmitter: AM EST STEVEN BUCK STEVEN MARTINEZReferrer: STEVEN MARTINEZ Attender: Oliver 07/27/2019 [facility] ( [facility] 10:47:00 [facility] AM EST - Center) 07/27/2019 10:47:00 AM EST Outpatient 07/27/2019 [facility] 12:00:00 Medical Center AM EST [address] 07/25/2019 eCW1 ([facility] 12:00:00 [facility]) [address] 07/17/2019 eCW1 ([facility] 12:00:00 [facility]) [address] 236 05/24/2019 eCW1 ([facility] 12:00:00 [facility]) [address] [address] 05/03/2019 eCW1 ([facility] 12:00:00 [facility]) Medications Medication Brand Start Product Dose Route Administrative Pharm[facility] Indications Reaction Description Data Name Date Form Instructions Instructions Source(s) Acetaminoph Tyleno 11/12/ active 2 table ts eCW1 en 325 MG l 325 2019 ([facility] Oral Tablet MG 12:00: Jay Jay s [Tylenol] 00 AM Medical Tylenol 325 EDT Practice MG PC) Acetaminoph Tyleno 11/12/ active 2 table ts eCW1 en 325 MG l 325 2019 ([facility] Tablet MG 12:00: Jay Jay s [Tylenol] 00 AM Medical Tylenol 325 EDT Practice MG PC) Acetaminoph Tyleno 11/12/ active 2 table ts eCW1 en 325 MG l 325 2019 ([facility] Tablet MG 12:00: Jay Jay s [Tylenol] 00 AM Medical Tylenol 325 EDT Practice MG PC) Omeprazole Omepra 07/17/ active 1 capsul e eCW1 40 MG zole 2018 ([facility] Delayed 40 MG 12:00: [facility] Release 00 AM Medical Oral EST Practice Capsule PC) Omeprazole Omepra 07/17/ active 1 capsul e eCW1 40 MG zole 2018 ([facility] Delayed 40 MG 12:00: [facility] Release 00 AM Medical Oral EST Practice Capsule PC) Omeprazole Omepra active 1 capsul e eCW1 40 MG zole 2018 ([facility] Delayed 40 MG 12:00: [facility] Release 00 AM Medical Oral EST Practice Capsule PC) Omeprazole Omepra 07/17/ active 1 capsul e eCW1 40 MG zole 2018 ([facility] Delayed 40 MG 12:00: [facility] Release 00 AM Medical Oral EST Practice Capsule PC) Omeprazole Omepra 07/17/ active 1 capsul e eCW1 40 MG zole 2018 ([facility] Delayed 40 MG 12:00: [facility] Release 00 AM Medical Oral EST Practice Capsule PC) Insurance Providers Payer name Policy type Policy ID Covered Covered democrat's Policy P darline / Coverage democrat ID relationship to [place] Inf ormation type [place] MVP MEDICAID [id number] SP [id number] HMO EDGARDO [id number] SP [id number] HEALTH NON CAP [place] W [id number] Problems, Conditions, and Diagnoses Code Display Name Description Problem Type Effective Dates Data Source(s) K75.9 [id number] Hepatitis Problem 01/10/2020 eCW1 ([facility] 12:00:00 AM EDT [facility]) G89.29 [id number] Other chronic pain Problem 11/13/2019 eCW1 ( [facility] 12:00:00 AM EDT [facility]) K75.9 Inflammatory liver INFLAMMATORY LIVER Diagnosis 0 [facility] disease, DISEASE, 09:06:00 AM EDT Medical C enter unspecified UNSPECIFIED Surgeries/Procedures Procedure Description Date Indications Data Source(s) COLLECTION VENOUS BLOOD 01/10/2020 eCW1 ([facility] VENIPUN[facility]URE 12:00:00 AM EDT Medical Prac liza ) HANDLG&/OR CONVEY OF 01/10/2020 eCW1 ([facility] SPEC FOR TR OFFICE TO 12:00:00 AM EDT Med ical Practice ) LAB Vital Signs ID Date Data Source UNK Name Value Range Interpretation Code Description Data Source(s) Diastolic blood 78 mm[Hg] 78 mm[Hg] eCW1 (Tyree nt pressure [facility] l Practice PC) Systolic blood 100 mm[Hg] 100 mm[Hg] eCW1 ([place] t pressure [facility]) Body temperature 98.2 [degF] 98.2 [degF] [facility] ( [facility]) Respiratory rate 18 /min 18 /min eCW1 ([facility]) Heart rate 76 /min 76 /min eCW1 ([facility]) Body mass index 29.40 kg/m2 29.40 kg/m2 eCW1 ([facility]int (BMI) [Ratio] [facility]) Body weight 166 [lb_av] 166 [lb_av] [facility]) Body height [in_us] eCW1 ([facility]) Diastolic blood 80 mm[Hg] 80 mm[Hg] eCW1 ([facility] nt pressure [facility]) Systolic blood 110 mm[Hg] 110 mm[Hg] eCW1 ([facility] t pressure [facility]) Body temperature 97.9 [degF] 97.9 [degF] eCW1 ( [facility]) Respiratory rate 18 /min 18 /min eCW1 ([facility]) Heart rate 85 /min 85 /min eCW1 ([facility]) Body mass index 29.40 kg/m2 29.40 kg/m2 eCW1 ([facility] aint (BMI) [Ratio] [facility]) Body weight 166 [lb_av] 166 [lb_av] eCW1 ([facility]) Body height [in_us] eCW1 ([facility]) Diastolic blood 83 mm[Hg] 83 mm[Hg] eCW1 ([facility] nt pressure [facility]) Systolic blood 107 mm[Hg] 107 mm[Hg] eCW1 ([facility] t pressure [facility]) Body temperature 98.7 [degF] 98.7 [degF] eCW1 ( [facility]) Respiratory rate 18 /min 18 /min eCW1 ([facility]) Heart rate 86 /min 86 /min eCW1 ([facility]) Body mass index 30.11 kg/m2 30.11 kg/m2 eCW1 ([facility] aint (BMI) [Ratio] [facility]) Body weight 170 [lb_av] 170 [lb_av] eCW1 ([facility]) Body height [in_us] eCW1 ([facility]) Diastolic blood 86 mm[Hg] 86 mm[Hg] eCW1 ([facility] nt pressure [facility]) Systolic blood 102 mm[Hg] 102 mm[Hg] eCW1 ([facility] t pressure [facility]) Body temperature 98.3 [degF] 98.3 [degF] eCW1 ( [facility]) Respiratory rate 18 /min 18 /min eCW1 ([facility]) Heart rate 82 /min 82 /min eCW1 ([facility]) Body mass index 29.05 kg/m2 29.05 kg/m2 eCW1 (S aint (BMI) [Ratio] [facility]) Body weight 164 [lb_av] 164 [lb_av] eCW1 ([facility]) Body height [in_us] eCW1 ([facility]) Diastolic blood 88 mm[Hg] 88 mm[Hg] eCW1 ([facility] nt pressure [facility]) Systolic blood 116 mm[Hg] 116 mm[Hg] eCW1 ([facility] t pressure [facility]) Body temperature 98.0 [degF] 98.0 [degF] eCW1 ( [facility]) Respiratory rate 18 /min 18 /min eCW1 ([facility]) Heart rate 83 /min 83 /min eCW1 ([facility]) Body mass index 28.69 kg/m2 28.69 kg/m2 eCW1 (S aint (BMI) [Ratio] [facility]) Body weight 162 [lb_av] 162 [lb_av] eCW1 ([facility]) Body height [in_us] eCW1 ([facility]) Patient Treatment Plan of Care Planned Activity Planned Date Details Description Data Source (s) Acetaminophen 325 MG Oral 11/13/2019 12:00:00 eCW1 ([facility] Tablet [Tylenol] AM EDT [facility] Omeprazole 40 MG Delayed 07/17/2019 12:00:00 eCW1 ([facility] Release Oral Capsule AM [facility] PC) Omeprazole 40 MG Delayed 07/17/2019 12:00:00 eCW1 ([facility] Release Oral Capsule AM EST Medical Practice PC)
--- NOTE | 2020-06-05 20:27 | PDOC ---
History of Present Illness - General Chief Complaint: Weakness Stated Complaint: BACK PAIN Time Seen by Provider: 06/05/20 20:26 History Source: Patient Exam Limitations: No Limitations - History of Present Illness Initial Comments: 06/05/20 20:27 40F with PMH of chronic low back pain, managed by Dr. Mcdonnell, p/w worsening low back pain, same location w/o radiation. Gradually worsened 3 weeks ago, and saw Dr Arroyo at the time, but intensified 3 days ago when bending over to grab a sock. She's tried flexaril, motrin, and tylenol w/o relief. She's able to ambulate but limited due to the pain. Denies fevers/chills, pain lying supine, LE numbness/tingling/weakness, or urinary incontinence. SH: none Tob/Etoh/Rec drugs: neg x3 Neuro: Dr. Mcdonnell ROS: GENERAL/CONSTITUTIONAL: No fever or chills. GASTROINTESTINAL: No nausea, vomiting, diarrhea or constipation. GENITOURINARY: No dysuria, frequency, or change in urination. MUSCULOSKELETAL: No joint or muscle swelling or pain. +back pain NEUROLOGIC: No headache, vertigo, loss of consciousness, or change in strength/sensation. PE: GENERAL: AOx3; no apparent distress CARDIO: RRR, normal S1/S2, no murmurs, rubs, or gallops. DP pulses 2+ and equal bilaterally LUNGS: No distress, speaks full sentences, CTA bilaterally EXTREMITIES: Normal inspection, Normal range of motion, no edema. BACK: paraspinal tenderness to palpation lumbar region NEUROLOGICAL: LE strength 5/5 bl, sensation intact bl. Assessment and Plan 1. pain control for low back pain -> toradol Delano Gaxiola, PGY1 Emergency Medicine Past History - Medical History Allergies/Adverse Reactions: Allergies Allergy/AdvReac Type Severity Reaction Status Date / Time tramadol Allergy Verified 06/06/19 06:52 Home Medications: Ambulatory Orders Cyclobenzaprine HCl [Flexeril 10 mg] 10 mg PO PRN PRN 06/06/19 Naproxen 500 mg PO BID 14 Days #28 tablet 06/06/20 CVA: No COPD: No - Reproductive History Is Patient Now?: No - Immunization History Immunization Up to Date: Yes - Psycho-Social/Smoking History Smoking History: Never smoked Have you smoked in the past 12 months: No - Substance Abuse Hx (Audit-C & DAST Scrn) How often the patient has a drink containing alcohol: Never Score: In Men: 4 or > Positive; In Women: 3 or > Positive: 0 Screen Result (Pos requires Nsg. Audit-10AR): Negative In the last yr the pt used illegal drug/Rx for NonMed reason: No Score: Yes response is considered Positive: 0 Screen Result (Positive result requires Nsg. DAST-10): Negative *Physical Exam - Vital Signs Last Vital Signs Temp Pulse Resp BP Pulse Ox 98.6 F 85 19 98/68 98 06/05/20 19:38 06/05/20 19:38 06/05/20 19:38 06/05/20 19:38 06/05/20 19:38 Medical Decision Making - Medical Decision Making 06/05/20 21:05 40F hx/o chronic low back pain p/w worsening low back pain. Moderate paraspinal tenderness lumbar region, no LE numbness, weakness, incontinence/retention -> not conerned for cauda equina, cord compression, or epidural abscess -> likely musculoskeletal in origin, exacerbated from baseline. Lumbar MRI done in March, degenerative changes with herniation. No imaging or further w/up indicated at this time. -> will give Toradol + lidocaine patch 06/05/20 22:31 Pt reports improvement of pain from a 9 -> 610, will give 5mg valium. 06/06/20 00:05 She reports improvement to ~5/10. She was able to demonstrate the ability to ambulate. Will d/c with naproxen and home exercises. Discharge - Discharge Information Problems reviewed: Yes Clinical Impression/Diagnosis: Chronic back pain Qualifiers: Back pain location: low back pain Back pain laterality: bilateral Sciatica presence: without sciatica Qualified Code(s): M54.5 - Low back pain Condition: Improved Disposition: HOME - Admission No - Additional Discharge Information Prescriptions: Naproxen 500 mg PO BID 14 Days #28 tablet - Follow up/Referral Referrals: Nalini Mcdonnell MD [Primary Care Provider] - - Patient Discharge Instructions Additional Instructions: You were seen in the emergency department for low back pain. This back pain is likely a musculoskeletal problem. Please follow up with your primary care physician and or Dr. Mcdonnell regarding your visit to the emergency department. Ask Dr. Arroyo or the Physical Therapist about increasing the frequency of the physical therapy sessions. Exercises and stretches will likely provide better long-term improvement. Try the printed out home exercises a few times per week, and increase frequency of exercising as tolerated. You were given Toradol, a lidocaine patch, and Valium in the emergency department and sent home with a prescription for Naproxen. Take 1 tablet twice per day for 2 weeks. Do not take Motrin or Advil with this medication. It is ok to take Tylenol. If you experience profound back pain that radiates down the legs, leg numbness or weakness, please return to the emergency department or call 911. - Post Discharge Activity
--- NOTE | 2020-06-05 20:51 | PDOC ---
Attending Attestation - Resident Resident Name: Delano Gaxiola - ED Attending Attestation I have performed the following: I have examined & evaluated the patient, The case was reviewed & discussed with the resident, I agree w/resident's findings & plan, Exceptions are as noted - HPI HPI: 06/06/20 00:26 See resident HPI - Physicial Exam PE: 06/06/20 00:26 Agree with documented exam - Medical Decision Making 06/06/20 00:26 Acute exacerbation of chronic lower back pain, no red flags analgesia re-eval dispo per clinical course Discharge - Discharge Information Problems reviewed: Yes Clinical Impression/Diagnosis: Chronic back pain Qualifiers: Back pain location: low back pain Back pain laterality: bilateral Sciatica presence: without sciatica Qualified Code(s): M54.5 - Low back pain Condition: Improved Disposition: HOME - Additional Discharge Information Prescriptions: Naproxen 500 mg PO BID 14 Days #28 tablet - Follow up/Referral Referrals: Nalini Mcdonnell MD [Primary Care Provider] - - Patient Discharge Instructions Additional Instructions: You were seen in the emergency department for low back pain. This back pain is likely a musculoskeletal problem. Please follow up with your primary care physician and or Dr. Mcdonnell regarding your visit to the emergency department. Ask Dr. Arroyo or the Physical Therapist about increasing the frequency of the physical therapy sessions. Exercises and stretches will likely provide better long-term improvement. Try the printed out home exercises a few times per week, and increase frequency of exercising as tolerated. You were given Toradol, a lidocaine patch, and Valium in the emergency department and sent home with a prescription for Naproxen. Take 1 tablet twice per day for 2 weeks. Do not take Motrin or Advil with this medication. It is ok to take Tylenol. If you experience profound back pain that radiates down the legs, leg numbness or weakness, please return to the emergency department or call 911. - Post Discharge Activity
[2020-06-05] MEDS ORDERED: LIDOCAINE 5% TOPICAL PATCH TP ONE (21:09)
[2020-06-05] MEDS ORDERED: KETOROLAC TROMETHAMINE 60 MG/2 ML VIAL IM ONE (21:09)
[2020-06-05] MEDS ORDERED: KETOROLAC TROMETHAMINE 30 MG/1 ML VIAL ONE (21:16)
[2020-06-05] MEDS ORDERED: LIDOCAINE 5% TOPICAL PATCH ONE (21:18)
[2020-06-05] MEDS ORDERED: LIDOCAINE PATCH REMOVAL MC SCH (22:00)
[2020-06-05] MEDS ORDERED: diazePAM 5 MG TABLET PO ONE (22:21)
[2020-06-05] MEDS ORDERED: diazePAM 5 MG TABLET ONE (23:24)
[2020-06-06 01:01] VITALS: BP 108/59; PULSE 73
== END 2020-06-06 00:58 | disposition home or self-care (01) ==
LOC: JER 19:34
PROC: 3E0233Z Introduction of Anti-inflammatory into Muscle, Percutaneous Approach (ICD-10-PCS; principal; 2020-06-05)
DX: M54.5 Low back pain (principal)
CPT/HCPCS: 99284-25

== ENCOUNTER 2021-03-10 18:15 | Emergency (ER) | payer OTHER ==
[2021-03-10 18:25] VITALS: BP 110/70; PULSE 69; TEMP 98.1; BMI 24.5
[2021-03-10] MEDS ORDERED: FLUCONAZOLE 50 MG TABLET PO ONE (18:45)
[2021-03-10] MEDS ORDERED: FLUCONAZOLE 150 MG TABLET PO ONE (18:51)
[2021-03-10 18:56] LABS: HCG,QUALITATIVE URINE Negative
[2021-03-10 18:57] LABS: EPI CELLS 34 /uL (0-25.1); HYALINE CASTS 0 /uL (0-3.1); PH,URINE 7.5 (5.0-8.0); URINE APPEARANCE CLEAR; URINE BACTERIA 319 /uL (0-1359); URINE BILIRUBIN NEGATIVE (NEGATIVE); URINE COLOR YELLOW; URINE GLUCOSE (UA) NEGATIVE (NEGATIVE); URINE KETONE NEGATIVE (NEGATIVE); URINE LEUK ESTERASE 1+ (NEGATIVE); URINE NITRITE NEGATIVE (NEGATIVE); URINE PROTEIN NEGATIVE (NEGATIVE); URINE RBC 3 /uL (0-23.9); URINE UROBILINOGEN 0.2 mg/dL (0.2-1.0); URINE WBC 46 /uL (0-25.8)
[2021-03-10 19:25] LABS: YEAST NONE SEEN (NEGATIVE)
[2021-03-10] MEDS ORDERED: IBUPROFEN 600 MG TABLET (FP) PO ONE (19:29)
== END 2021-03-10 19:30 | disposition home or self-care (01) ==
LOC: JERFT 18:15
DX: R30.0 Dysuria (principal)
CPT/HCPCS: 36415; 81003; 84703; 87070; 87086; 87205; 87491; 87591; 99283-25

== ENCOUNTER 2023-07-13 08:46 | Day surgery (SDC) | payer OTHER ==
[2023-07-13 10:46] VITALS: TEMP 97.9; BMI 26.9
[2023-07-13 13:10] VITALS: RESP 16
[2023-07-13 13:36] VITALS: PULSE 79
[2023-07-13 13:46] VITALS: BP 110/64
== END 2023-07-13 13:46 | disposition home or self-care (01) ==
LOC: FASU-ENDO 08:46
PROVIDERS: ATTEND Internal Medicine Gastroenterology
PROC: 0DBL8ZX Excision of Transverse Colon, Via Natural or Artificial Opening Endoscopic, Diagnostic (ICD-10-PCS; 2023-07-13)
PROC: 0DBM8ZX Excision of Descending Colon, Via Natural or Artificial Opening Endoscopic, Diagnostic (ICD-10-PCS; 2023-07-13)
PROC: 0DBK8ZX Excision of Ascending Colon, Via Natural or Artificial Opening Endoscopic, Diagnostic (ICD-10-PCS; principal; 2023-07-13 12:41)
DX: Z12.11 Encounter for screening for malignant neoplasm of colon (principal); K64.1 Second degree hemorrhoids; K64.8 Other hemorrhoids; R19.7 Diarrhea, unspecified; R10.84 Generalized abdominal pain
CPT/HCPCS: 81025; 88305-TC

== ENCOUNTER 2023-10-26 10:48 | Day surgery (SDC) | payer OTHER ==
[2023-10-24 14:02] VITALS: BMI 26.8
[2023-10-26 12:57] VITALS: RESP 19; TEMP 98
[2023-10-26 12:59] VITALS: BP 106/64; PULSE 81
== END 2023-10-26 13:01 | disposition home or self-care (01) ==
LOC: FASU-ENDO 10:48
PROVIDERS: ATTEND Internal Medicine Gastroenterology
PROC: 0DJD8ZZ Inspection of Lower Intestinal Tract, Via Natural or Artificial Opening Endoscopic (ICD-10-PCS; principal; 2023-10-26 12:15)
DX: R10.9 Unspecified abdominal pain (principal); K64.1 Second degree hemorrhoids; K64.5 Perianal venous thrombosis
CPT/HCPCS: 81025